=== PATIENT | male | born 1990 | race Caucasian/White ===

== ENCOUNTER 2022-12-26 10:56 | Emergency (ER) | payer BC, SELFPAY ==
[2022-12-26] VITALS (8 sets, daily range): BP systolic 137–168; BP diastolic 80–100; PULSE 58–82; RESP 13–18; TEMP 36.4; O2SAT 98–99; BMI 29.2
--- NOTE | 2022-12-26 11:19 | ECG_ITS ---
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
--- NOTE | 2022-12-26 11:28 | CT_ITS ---
The [address] [address] Patient Name: MADELEINE MCDONALD MRN: [id number] date: 1990 Sex: M Assigned Patient Location: ER Current Patient Location: ER Accession/Order Number: [id number] Exam Date: 12/26/2022 11:56 Report Date: 12/26/2022 12:14 At the request of: SERVANDO MATA Procedure: CT head/brain wo con EXAMINATION: CT head/brain wo con HISTORY: dizziness and HTN urgency COMPARISON: None.. TECHNIQUE: Unenhanced helical imaging was acquired from skull base to vertex. Multiplanar images are submitted. Dose reduction techniques were achieved by using: automated exposure control and/or adjustment of mA and /or kV according to patient size and/or use of iterative reconstruction technique. FINDINGS: There is no acute intraaxial or extraaxial mass, shift, or bleed. Nicolas-white junctions are well defined. The ventricles and sulci are age-appropriate. The pituitary and sella turcica are normal. The orbit and ocular contents are normal. Mucosal thickening within the bilateral ethmoid air cells as well as gas and fluid in the imaged maxillary and sphenoid sinuses. The frontal sinuses appear clear. Calvarium is intact. CT/CT head/brain wo con IMPRESSION: 1. No acute intracranial event. 2. Partially imaged ethmoid, bilateral sphenoid and maxillary sinusitis.. Electronically authenticated by: JAYNA WANG Date: 12/26/2022 12:14
[2022-12-26] MEDS: 0.9 % SODIUM CHLORIDE 1,000 ML 1000 ML IV (11:45)
[2022-12-26 11:48] LABS: Basophils Absolute Auto 0.1 10^3/uL (0.0-0.1); Basophils Percent Auto 0.7 % (0.2-2.0); Eosinophils Absolute Auto 0.3 10^3/uL (0.0-0.7); Eosinophils Percent Auto 4.1 % (0.9-7.0); Hematocrit 42.8 % (42.0-54.0); Hemoglobin 14.7 g/dL (14.0-18.0); Immature Granulocytes Abs Auto 0.04 10^3/uL (0.00-0.03); Immature Granulocytes Pct Auto 0.5 % (0.0-0.5); Lymphocytes Absolute Auto 2.3 10^3/uL (1.2-3.8); Lymphocytes Percent Auto 28.2 % (20.5-60.0); Mean Corpuscular HGB Conc 34.3 g/dL (29.9-35.2); Mean Corpuscular Hemoglobin 28.8 pg (25.9-34.0); Mean Corpuscular Volume 83.9 fL (80.0-94.0); Mean Platelet Volume 9.4 fL (9.5-13.5); Monocytes Absolute Auto 0.8 10^3/uL (0.3-0.8); Monocytes Percent Auto 10.5 % (1.7-12.0); Neutrophils Absolute Auto 4.5 10^3/uL (1.4-6.5); Platelet Count 205 10^3/uL (150-450); Red Cell Distribution Width 13.1 % (11.0-15.0)
[2022-12-26] MEDS: DIPHENHYDRAMINE HCL 50 MG/ML (1ML) VIAL 12.5 MG IV (11:51)
[2022-12-26 12:11] LABS: Alanine Aminotransferase 59 U/L (16-63); Alkaline Phosphatase 49 U/L (46-116); Anion Gap 9.6; Aspartate Amino Transferase 25 U/L (15-37); BUN Creatinine Ratio 17.5; Bilirubin Total 0.6 mg/dL (0.2-1.0); Calcium 9.2 mg/dL (8.5-10.1); Carbon Dioxide 27.7 mmol/L (21.0-32.0); Chloride 101 mmol/L (98-107); Estimated GFR (African America >60 (>=60); Estimated GFR (Non-African Ame >60 (>=60); Glucose 101 mg/dL (74-106); Potassium 4.3 mmol/L (3.5-5.1); Sodium 134 mmol/L (136-145); Troponin I High Sensitivity <4.0 pg/mL (4.0-76.1)
--- NOTE | 2022-12-26 12:50 | ED_ITS ---
HPI - Dizziness General Chief Complaint: Dizziness Stated Complaint: DIZZINESS/NAUSEA Time Seen by Provider: 12/26/22 11:18 Source: patient and family Mode of arrival: Wheelchair Limitations: no limitations History of Present Illness HPI Narrative: The patient have no previous significant medical history coming to the ER after he started an episode of the room spinning he just started after he woke up he had no preceding symptoms during the day and he also was feeling okay yesterday the patient also denies any headache nausea vomiting chest pain or any other concerns He tried some meclizine before arrival Related Data Previous Rx's Medication Instructions Recorded meclizine 25 mg tablet 25 mg PO TID PRN motion sickness 12/26/22 #14 tabs Allergies Allergy/AdvReac Type Severity Reaction Status Date / Time amoxicillin Allergy Intermediate Verified 12/26/22 11:03 Review of Systems ROS Status of ROS 10 or more systems reviewed and unremarkable except as noted in history and below PFSH PFS Social History Smoking status: Current every day smoker Exam Narrative Exam Narrative: Nurses notes and vital signs reviewed and patient is not hypoxic. General: Well-appearing and in no apparent distress. Skin: Warm, dry, no pallor noted. No rash. Head: Normocephalic, atraumatic. Neck: Supple, non-tender. Eye: Pupils are equal, round and EOMI. No scleral icterus. Ears, Nose, Mouth, and Throat: TM are clear, no nasal mucosal hypertrophy. Oral mucosa is moist, no posterior oropharynx erythema, uvula is mid-line Cardiovascular: Regular Rate and Rhythm without murmur, gallop or rub. Respiratory: No accessory muscle use or respiratory distress. Lungs are clear to auscultation, no wheezing, rales or rhonchi Chest Wall: no tenderness Back: No midline thoracic or lumbar vertebral tenderness. No CVA tenderness Musculoskeletal: normal ROM, no calf or popliteal tenderness, no lower extremity edema/swelling GI: Abdomen is soft, non-distended. Normal bowel sounds. No masses appreciated. No tenderness to palpation. No rebound, guarding, or rigidity noted. Neurological: A&O x4. No cranial nerve dysfunction observed. No truncal ataxia. Moves all extremities. Sensation intact. Psychiatric: Cooperative and interactive. Normal mood and affect. Constitutional Vital Signs, click to edit/add: Last Vital Signs Temp 97.6 F 12/26/22 11:01 Pulse 65 10/22/23 12:44 Resp 18 12/26/22 12:44 BP 137/80 12/26/22 12:44 Pulse Ox 98 12/26/22 12:44 O2 Del Method Room Air 12/26/22 11:01 Course Vital Signs Vital signs: Vital Signs Temperature 97.6 F 12/26/22 11:01 Pulse Rate 82 12/26/22 11:01 Respiratory Rate 16 12/26/22 11:01 Blood Pressure 168/100 H 12/26/22 11:01 Pulse Oximetry 99 12/26/22 11:01 Oxygen Delivery Method Room Air 12/26/22 11:01 Temperature 97.6 F 12/26/22 11:01 Pulse Rate 65 12/26/22 12:44 Respiratory Rate 18 12/26/22 12:44 Blood Pressure 137/80 12/26/22 12:44 Pulse Oximetry 98 12/26/22 12:44 Oxygen Delivery Method Room Air 12/26/22 11:01 MDM - Dizziness MDM Narrative Medical decision making narrative: The patient EKG in the ER showing sinus rhythm with a heart rate of [address] elevation or depression CBC chemistry showed no acute pathology it was noted that the patient blood pressure was systolic and diastolic elevated and that why obtain the CAT scan and the CAT scan of the head showed no acute pathology The patient was instructed that he need to make sure that he follow-up with a primary care as outpatient for further evaluation but right now his symptoms are mostly secondary to vertigo and paroxysmal vertigo Supportive care to be continued as well as rest The patient is to follow up with primary care physician in next 2-3 days or to return to the emergency department should any of the signs or symptoms worsen or new symptoms develop. The patient agrees with the following Diagnosis and Treatment plan and the patient will be discharged home. Lab Data Labs: Lab Results 12/26/22 Range/Units 11:40 WBC 8.0 (4.0-11.0) 10^3/uL RBC 5.10 (4.70-6.10) 10^6/uL Hgb 14.7 (14.0-18.0) g/dL Hct 42.8 (42.0-54.0) % MCV 83.9 (80.0-94.0) fL MCH 28.8 (25.9-34.0) pg MCHC 34.3 (29.9-35.2) g/dL RDW 13.1 (11.0-15.0) % Plt Count 205 (150-450) 10^3/uL MPV 9.4 L (9.5-13.5) fL Neut % (Auto) 56.0 (43.0-75.0) % Lymph % (Auto) 28.2 (20.5-60.0) % [place] % (Auto) 10.5 (1.7-12.0) % Eos % (Auto) 4.1 (0.9-7.0) % Baso % (Auto) 0.7 (0.2-2.0) % Neut # (Auto) 4.5 (1.4-6.5) 10^3/uL Lymph # (Auto) 2.3 (1.2-3.8) 10^3/uL [place] # (Auto) 0.8 (0.3-0.8) 10^3/uL Eos # (Auto) 0.3 (0.0-0.7) 10^3/uL Baso # (Auto) 0.1 (0.0-0.1) 10^3/uL Abs Immat Gran (auto) 0.04 H (0.00-0.03) 10^3/uL Imm/Tot Granulo (auto) 0.5 (0.0-0.5) % Sodium 134 L (136-145) mmol/L Potassium 4.3 (3.5-5.1) mmol/L Chloride 101 (98-107) mmol/L Carbon Dioxide 27.7 (21.0-32.0) mmol/L Anion Gap 9.6 BUN 17.0 (7.0-18.0) mg/dL Creatinine 0.97 (0.70-1.30) mg/dL Est GFR ( Amer) >60 (>=60) Est GFR (Non-Af Amer) >60 (>=60) BUN/Creatinine Ratio 17.5 Glucose 101 (74-106) mg/dL Calcium 9.2 (8.5-10.1) mg/dL Total Bilirubin 0.6 (0.2-1.0) mg/dL AST 25 (15-37) U/L ALT 59 (16-63) U/L Alkaline Phosphatase 49 (46-116) U/L Troponin I High Sens <4.0 L (4.0-76.1) pg/mL Total Protein 8.0 (6.4-8.2) g/dL Albumin 4.0 (3.4-5.0) g/dL Globulin 4.0 g/dL Albumin/Globulin Ratio 1.0 Discharge Plan Discharge Chief Complaint: Dizziness Clinical Impression: Benign paroxysmal positional vertigo Patient Disposition: Home, Self-Care Time of Disposition Decision: 12:39 Condition: Good Prescriptions / Home Meds: New meclizine 25 mg tablet 25 mg PO TID PRN (Reason: motion sickness) Qty: 14 0RF Instructions: Vertigo (ED), Benign Paroxysmal Positional Vertigo (ED) Stand Alone Forms: Portal Instructions Referrals: Physician,Non-Staff, MD [Primary Care Provider] - 1 week
== END 2022-12-26 12:51 | disposition home or self-care (01) ==
PROVIDERS: Emergency Provider Emergency Medicine
DX: H81.10 Benign paroxysmal vertigo, unspecified ear (principal); F17.210 Nicotine dependence, cigarettes, uncomplicated
CPT/HCPCS: 36415; 70450; 80053; 84484; 85025; 93005; 96361; 96374; 99285